=== PATIENT | female | born 1990 | race Caucasian/White ===

== ENCOUNTER 2024-01-04 06:26 | Inpatient (IN) | payer OTHER, SELFPAY ==
[2024-01-04] VITALS (88 sets, daily range): BP systolic 103–152; BP diastolic 64–96; PULSE 74–120; RESP 15–22; TEMP 36.4–37.1; O2SAT 96–100; BMI 29.2
[2024-01-04 07:12] LABS: Basophils Absolute Auto 0.1 K/mm3 (0.0-0.1); Basophils Percent Auto 0.7 % (0.2-1.2); Eosinophils Absolute Auto 0.1 K/mm3 (0-0.3); Eosinophils Percent Auto 1.2 % (0-4.4); Hematocrit 36.5 % (37.0-47.0); Hemoglobin 11.8 g/dL (12.0-15.0); Immature Granulocyte Absolute 0.07 K/mm3 (0.00-0.031); Immature Granulocyte Percent A 0.8 % (0-0.5); Lymphocytes Absolute Auto 2.38 K/mm3 (0.9-3.2); Lymphocytes Percent Auto 26.7 % (18.3-44.2); Mean Corpuscular HGB Conc 32.3 g/dl (32-36); Mean Corpuscular Volume 86.5 fl (80-100); Mean Platelet Volume 11.2 fl (7.4-10.4); Monocytes Absolute Auto 0.9 K/mm3 (0.1-0.6); Monocytes Percent Auto 9.9 % (2.6-8.5); Neutrophils Absolute Auto 5.4 K/mm3 (1.3-6.7); Neutrophils Percent Auto 60.7 % (45.5-73.1); Platelet Count Result 249 k/mm3 (150-375); Red Blood Count 4.22 M/mm3 (4.2-5.4); Red Cell Distribution Width 13.5 % (11.5-14.5); White Blood Count 8.9 K/mm3 (4.5-10.0)
[2024-01-04] MEDS: LACTATED RINGERS 1,000 ML 125 ML IV CONT ×2 (07:22→13:10)
[2024-01-04] MEDS: AMPICILLIN 2 GM/NS 100 ML 2 GM/100 ML BAG IVPB (07:22)
[2024-01-04] MEDS: OXYTOCIN 30 UNITS/NS 500 ML 30 UNITS/500 ML BAG IV CONT (07:25)
[2024-01-04 08:04] LABS: HIV 1/2 Ab P24 Ag Result Negative (Negative)
[2024-01-04 08:20] LABS: Rapid Plasma Reagin Non-Reactive (NonReactive)
[2024-01-04] MEDS: AMPICILLIN 1 GM/NS 50 ML 1 GM/50 ML BAG IVPB ×2 (11:03→14:52)
--- NOTE | 2024-01-04 11:22 | WPDANESEPP ---
Anes - Eval Pre Procedure Procedure: Labor epidural Date/Time: 01/04/24 11:22 Preop Diagnosis: pain during labor Pre Op Diagnosis: IOL Patient Data Age: 33 Gender: F Height: 1.63 m Weight: 77.2 kg Last Vital Signs Temp 37.1 C 01/04/24 11:00 Pulse 92 01/04/24 11:15 BP 127/80 01/04/24 11:15 O2 Del Method Room Air 01/04/24 06:50 Allergies Allergy/AdvReac Type Severity Reaction Status Date / Time No Known Allergies Allergy Verified 12/30/23 14:20 Home Medications Medication Instructions Recorded Confirmed Type vits no.126-ferrous fum 1 tablet PO DAILY 12/30/23 History 28 mg iron-folic acid 800 mcg tablet (Classic ) sertraline 100 mg tablet 100 mg PO DAILY 12/30/23 History Laboratory Tests 01/04/24 06:40 WBC 8.9 K/mm3 (4.5-10.0) RBC 4.22 M/mm3 (4.2-5.4) Hgb 11.8 L g/dL (12.0-15.0) Hct 36.5 L % (37.0-47.0) MCV 86.5 fl (80-100) MCH 28.0 pg (26-34) MCHC 32.3 g/dl (32-36) RDW 13.5 % (11.5-14.5) Plt Count 249 k/mm3 (150-375) MPV 11.2 H fl (7.4-10.4) Immature Gran % (Auto) 0.8 H % (0-0.5) Neut % (Auto) 60.7 % (45.5-73.1) Lymph % (Auto) 26.7 % (18.3-44.2) [place] % (Auto) 9.9 H % (2.6-8.5) Eos % (Auto) 1.2 % (0-4.4) Baso % (Auto) 0.7 % (0.2-1.2) Lymph # (Auto) 2.38 K/mm3 (0.9-3.2) [place] # (Auto) 0.9 H K/mm3 (0.1-0.6) Eos # (Auto) 0.1 K/mm3 (0-0.3) Baso # (Auto) 0.1 K/mm3 (0.0-0.1) Abs Immat Gran (auto) 0.07 H K/mm3 (0.00-0.031) Absolute Neuts (auto) 5.4 K/mm3 (1.3-6.7) Absolute Nucleated RBC 0.000 K/mm3 (0.0-0.012) Nucleated RBC % 0.0 % (0.0-0.2) RPR Non-reactive (NonReactive) HIV 1&2 Ab/P24 Ag 4thGn Negative (Negative) Blood Type B Positive Antibody Screen Negative Patient hx anesthesia problems: none Family hx anesthesia problems: none Results Review: All pre-operative results and documents have been reviewed as part of the pre-operative evaluation. FORMERLY [facility], [facility] Past Medical History Medical History (Updated 01/04/24 @ 11:23 by Lo Mark CRNA) IUP (intrauterine ), incidental Family History Family History (Updated 12/30/23 @ 14:26 by Marimar Gillette RN) Mother Cerebrovascular accident Social History Social History Substance use: never Do You Feel Safe in your Home?: Yes Lack of Transportation: YES Lack of Food: Never True Current Housing: I Have Housing Concerned About Future Housing: No Difficulty Paying Gas/Electric Bills: No Difficulty Paying for Meds: No Currently Unemployed: No Education: High School Diploma/GED Difficulty w/ Childcare or Family Care: No Spiritual care concerns: No Exam Day of Procedure 01/04/24 11:22
--- NOTE | 2024-01-04 13:05 | WPDHPUPDATE1 ---
History and Physical Update Update Date/Time: 01/04/24 13:05 33-year-old multiparous female with twin gestation at 38 weeks gestation. Induction of labor at 38 weeks. Good movement, artificial rupture of membranes was performed -clear fluid with some blood/ 6/ -1. Reassuring heart tones x2 , expectant management. History and Physical has been reviewed, including an updated exam of the patient. There are NO changes in the patient's condition. Risks, benefits, and alternatives have been discussed and questions answered. Patient agrees to proceed with procedure.
[2024-01-04] MEDS: ONDANSETRON INJ 4 MG/2 ML VIAL IV PUSH (15:26)
[2024-01-04] MEDS: ceFAZolin 1 GM/NS 50 ML 1 GM/50 ML BAG IVPB (16:00)
--- NOTE | 2024-01-04 16:41 | P.PNAN_ITS ---
Anes - Eval Final PreProcedure Day of Procedure 01/04/24 16:41 Patient weight: overweight Heart: tachycardia Lungs: clear to auscultation Neurological: alert and oriented ASA classification: II Emergent: no Anesthetic plan: proceed Anesthesia type and monitoring: regional epidural and standard monitoring Other findings: use existing epid for c/s twin b Results Review: All pre-operative results and documents have been reviewed as part of the pre- operative evaluation. Informed Consent: The patient's anesthetic plan and its attendant risks and benefits were discussed with the patient/family/POA. Questions were solicited and answers provided to the satisfaction of the patient/family/POA.
--- NOTE | 2024-01-04 16:53 | W.PM.OBCSD ---
OB - Delivery Note Procedure Delivery date: 01/04/24 Pre-op diagnosis: Other (Twin gestation, malposition of the 2nd twin -transverse) Post-op Diagnosis: Same Induction method: AROM and Per Pitocin Protocol Delivery monitor: External FHT and External Uterine Procedure Performed: Primary and Other ( normal spontaneous vaginal delivery) Surgeon: Charlie Garcia MD Anesthesia type: Epidural Description of Procedure/Findings: Twin A was delivered vaginally after induction of labor with Pitocin and artificial rupture of membranes. There was a second-degree laceration that was pared with 2-0 Vicryl. Twin gestation, both babies were vertex initially. she rapidly progressed through active labor and delivered with just a couple of pushes. Epidural anesthesia. Twin B was delivered by for transverse lie. She was prepped and draped in dorsal supine position with a leftward tilt.? This was done after spinal anesthetic was applied.? A low-transverse skin incision was made and carried down till of the fascia with the knife.? The fascial incision was made with the knife.? The fascial incision was extended laterally with Cormier scissors.? The fascia was tented upward superiorly and inferiorly the rectus muscles were dissected off bluntly.? The rectus muscles were the midline.? The preperitoneal fat and peritoneum were dissected open bluntly at the superior aspect of the rectus muscles.? The peritoneal incision was extended superior and inferior with good position of bladder.? The uterine incision was made with a scalpel down to the level of the amniotic cavity.? The amniotic cavity was entered bluntly.? The infant was delivered.? The cord was clamped and cut and the was handed off to waiting pediatric staff.? Cord bloods were obtained.? The placenta was removed manually.? The uterus was exteriorized.? The uterus was cleared of all clots, debris and membranes.? The uterus was closed in 0 Vicryl running lock fashion.? An imbricating over a was placed along the incision line as well.? The uterus was returned to the abdomen.? The gutters were cleared of all clots and debris.? The fascia was closed with 0 Vicryl running fashion.? The subcutaneous tissue was irrigated pinpoint bleeders were cauterized.? The skin was closed with subcuticular absorbable bib.? The skin incision line was covered with glue.? The patient tolerated the procedure well.? She has taken recovery room in stable condition.? Sponge lap and needle counts were correct x2.? Specimen: Yes Complications: No immediate complications Condition: Stable Disposition: Floor [place] Baby Date of : 01/04/24 Gestational Age by Date: 38 Twins 2: Date of : 01/04/24 Weeks of gestation at delivery: 38
[2024-01-04] MEDS: ACETAMINOPHEN 500 MG TABLET 1000 MG PO (17:57)
[2024-01-04] MEDS: OXYTOCIN 30 UNITS/NS 500 ML 30 UNITS/500 ML BAG 125 UNITS IV CONT (17:58)
[2024-01-04] MEDS: FAMOTIDINE 20 MG/2 ML VIAL IV PUSH (17:58)
[2024-01-04] MEDS: KETOROLAC 15 MG/ML VIAL (*BKC) IV PUSH (20:07)
[2024-01-04] MEDS: KCL 20 MEQ/D5/0.45% SOD CHL 1,000 ML 125 ML IV CONT (21:05)
[2024-01-05 00:30] VITALS: BP 117/72; PULSE 87; RESP 16; TEMP 36.9
[2024-01-05] MEDS: ACETAMINOPHEN 325 MG TABLET 650 MG PO ×4 (02:18→21:14)
[2024-01-05] MEDS: KETOROLAC 15 MG/ML VIAL (*BKC) IV PUSH ×3 (02:19→15:08)
[2024-01-05 04:30] VITALS: BP 121/74; PULSE 86; RESP 16; TEMP 36.8; O2SAT 99
--- NOTE | 2024-01-05 05:15 | PC.NURSE ---
193 Pt arrived on unit via stretcher to room 277 pt oriented to floor policies. Pt stable at this time, chux changed when transferring to bed. bleeding moderate, fundus firm at umbilicus.
--- NOTE | 2024-01-05 05:17 | PC.NURSE ---
0500- FC discontinued, CBC drawn and sent to lab. Pt up at side of bed then taking small steps in room without difficulty. Underpads changed, underwear placed on pt. Pt back in bed with standby assist of this nurse. Pt knows to call for assistance to restroom.
[2024-01-05 05:19] LABS: Basophils Percent Auto 0.2 % (0.2-1.2); Eosinophils Percent Auto 0.1 % (0-4.4); Hematocrit 27.9 % (37.0-47.0); Hemoglobin 9.2 g/dL (12.0-15.0); Immature Granulocyte Absolute 0.09 K/mm3 (0.00-0.031); Immature Granulocyte Percent A 0.6 % (0-0.5); Lymphocytes Absolute Auto 1.83 K/mm3 (0.9-3.2); Lymphocytes Percent Auto 12.3 % (18.3-44.2); Mean Platelet Volume 11.4 fl (7.4-10.4); Monocytes Absolute Auto 1.3 K/mm3 (0.1-0.6); Monocytes Percent Auto 8.5 % (2.6-8.5); Neutrophils Absolute Auto 11.7 K/mm3 (1.3-6.7); Neutrophils Percent Auto 78.3 % (45.5-73.1); Platelet Count Result 189 k/mm3 (150-375); Red Blood Count 3.17 M/mm3 (4.2-5.4); Red Cell Distribution Width 13.6 % (11.5-14.5); White Blood Count 14.9 K/mm3 (4.5-10.0)
--- NOTE | 2024-01-05 07:45 | P.PNOB_ITS ---
OB - PN: Subj Subjective Date/time seen: 01/05/24 07:45 Interval history: post op day 1 vaginal delivery twin A/ twin B doing well pain managed OB - PN: Obj Data Labs 01/05/24 04:43 Labs: Laboratory Results - last 24 hr 01/04/24 01/05/24 06:40 04:43 WBC 14.9 H RBC 3.17 L Hgb 9.2 L Hct 27.9 L MCV 88.0 MCH 29.0 MCHC 33.0 RDW 13.6 Plt Count 189 MPV 11.4 H Immature Gran % (Auto) 0.6 H Neut % (Auto) 78.3 H Lymph % (Auto) 12.3 L [place] % (Auto) 8.5 Eos % (Auto) 0.1 Baso % (Auto) 0.2 Lymph # (Auto) 1.83 [place] # (Auto) 1.3 H Eos # (Auto) 0.0 Baso # (Auto) 0.0 Abs Immat Gran (auto) 0.09 H Absolute Neuts (auto) 11.7 H Absolute Nucleated RBC 0.000 Nucleated RBC % 0.0 RPR Non-reactive HIV 1&2 Ab/P24 Ag 4thGn Negative Blood Type B Positive Antibody Screen Negative OB - PN A/P Plan day: 1 Time Spent With Patient Time: Total time spent is greater than 50% in coordination of care (as documented) at patient's floor/unit and/or counseling patient: Review of Systems Review of Systems: All systems reviewed & are unremarkable except as noted in HPI and below Exam Const: General: cooperative and healthy appearing Chest: Chest palpation & inspection: normal inspection of the chest Resp: Effort & Inspection: normal respiratory effort Cardio: Rate: regular rate GI: Other: incision CDI Skin: General skin exam: normal color Neuro: General: patient oriented x3
[2024-01-05 08:20] VITALS: BP 113/71; PULSE 86; RESP 18; TEMP 36.8; O2SAT 98
[2024-01-05] MEDS: SIMETHICONE 80 MG TAB.CHEW PO ×3 (09:05→17:54)
[2024-01-05] MEDS: POLYSACCHARIDE IRON COMPLEX 150 MG CAPSULE PO ×2 (09:06→17:54)
[2024-01-05] MEDS: DOCUSATE SODIUM 100 MG CAPSULE PO ×2 (09:06→17:54)
[2024-01-05] MEDS: MULTIVIT/MIN/PREN/FOL AC/IRON TABLET 1 TAB PO (09:06)
--- NOTE | 2024-01-05 09:37 | WPDANLDPN2 ---
Anes-Prog Note L&D Date/Time: 01/05/24 09:37 Comfortable throughout: labor, delivery (baby A) and section (baby B) Neuraxial method: epidural Epidural/Spinal procedure site: clean & non-tender Neuro status: Neuro function grossly intact. Cardiovascular status: normal Respiratory status: normal Airway patency: baseline Mental status: baseline Post-Op hydration status: normal Vital Signs: Last Vital Signs Temp 98.2 F 01/05/24 08:20 Pulse 86 01/05/24 08:20 Resp 18 01/05/24 08:20 BP 113/71 01/05/24 08:20 Pulse Ox 98 01/05/24 08:20 O2 Del Method Room Air 01/04/24 18:50 Pain score (VAS): 3 I/O: Intake & Output 01/04/24 01/05/24 01/05/24 23:59 07:59 15:59 Intake Total 250 1250 Output Total 1140 1800 Balance -890 -550 Post-procedural complaints: pruritis mild, no treatment Patient feedback: Patient satisfied with anesthetic care.
--- NOTE | 2024-01-05 09:39 | WPDANLDNPN2 ---
Anes-Prog Note L&D-Neuraxial Date/Time: 01/05/24 09:39 Neuraxial medications: epidural PF morphine Opiod-related complaints: pruritis mild, no treatment Patient feedback: Patient satisfied with post-operative pain management.
--- NOTE | 2024-01-05 11:05 | PC.NURSE ---
[id number]. Met with patient to assess and discuss needs related to feeding. Mother states it is her intention to [exclusively breastfeed]. She states she BF her 7 year old son for a year. Encouraged mother to breastfeed infant every 2-3 hours, watching for early feeding cues. If infant is sleepy, unwrap and place baby skin to skin. Discussed signs that is effectively , i.e. sufficient voids and stools, jaundice within normal limits, <10% weight loss from . Mother educated on milk production, supply and demand, and expectations for in the immediate period. Baby girl was able to latch optimally to the right and left breast, with swallows heard and visualized. Baby boy was unable to latch due to being sleepy. Mother encouraged to do skin to skin with baby boy and hand express some colostrum to offer to baby boy, and to watch for feeding cues in baby boy. Encouraged feeding on demand and feeding durations of 15 minutes or greater. Discussed breast/nipple care with good hand hygiene, signs of a correct latch, listening for swallows and documenting feedings on the feeding sheet. Mother also reports she has a pump provided thru insurance and plans to pump when she goes back to work at 12 weeks. She has measured both nipples for the appropriate size flange and feels confident she has the appropriate size. Mother instructed to call for assistance if infant will not feed every 3 hours, if there is discomfort with , or if mother has any other questions or concerns. resources provided including the Mom and Baby Guide. Mother verbalized understanding. Updated patient?s primary RN with education provided.
[2024-01-05 12:07] VITALS: BP 117/77; PULSE 110; RESP 16; TEMP 36.3; O2SAT 100
[2024-01-05] MEDS: WITCH HAZEL 40 PADS 1 PAD (12:59)
[2024-01-05] MEDS: BENZOCAINE 20% AER SPR (*SP) 56 GM CAN 1 SPRAY (12:59)
[2024-01-05 18:58] VITALS: BP 131/76; PULSE 90; RESP 12; TEMP 36.6; O2SAT 99
[2024-01-05] MEDS: IBUPROFEN 600 MG TABLET PO (21:14)
[2024-01-06] MEDS: IBUPROFEN 600 MG TABLET PO ×4 (05:19→23:13)
[2024-01-06] MEDS: ACETAMINOPHEN 325 MG TABLET 650 MG PO ×4 (05:19→23:13)
[2024-01-06] MEDS: LIDOCAINE 5% PATCH 1 PATCH TRANSDERM (05:20)
[2024-01-06 07:25] VITALS: BP 122/75; PULSE 103; RESP 16; TEMP 37.1; O2SAT 98
[2024-01-06] MEDS: POLYSACCHARIDE IRON COMPLEX 150 MG CAPSULE PO ×2 (07:47→17:27)
[2024-01-06] MEDS: MULTIVIT/MIN/PREN/FOL AC/IRON TABLET 1 TAB PO (07:47)
[2024-01-06] MEDS: DOCUSATE SODIUM 100 MG CAPSULE PO ×2 (07:47→17:27)
[2024-01-06] MEDS: SIMETHICONE 80 MG TAB.CHEW PO ×3 (07:47→17:27)
--- NOTE | 2024-01-06 08:00 | PC.NURSE ---
Consulted with patient to assess needs related to . Discussed with mother her successes, concerns and any questions she has. Reviewed positioning and alignment with twins, supporting breast. Handout given with different positions for feeding both infants simultaneously. A latched optimally to the right breast in cross cradle position. Mom was able to latch independently. The infant was able to maintain latch without discomfort to mother. Resources used to facilitate learning were used from a visual handout. Discussed doing [15-15-15] with mother for Baby A and Baby B. Weight loss is a concern with both Baby A and Baby B. Mother states that she is already supplementing Baby B with Gentlease formula. Educated mother that this is not a doctors order, just a recommendation due to increased weight loss. Discussed infant feeding for 15 minutes, formula feeding 15ml after each 15 minutes nursing session and pumping for 15 minutes. Mother states that she would like to begin doing this with next feeding. Breast Pump (Spectra) being brought from home today - patient will call RN for pump education once her pump arrives. Mother voiced understanding of the education shared, to call for assistance if the infant does not latch or if there is discomfort with . Reported to the Primary RN.
--- NOTE | 2024-01-06 08:41 | P.PNOB_ITS ---
OB - PN: Subj Subjective Date/time seen: 01/06/24 08:41 Interval history: post op day 1 vaginal delivery twin A/ twin B doing well pain managed Patient comments: no complaints, pain well controlled, incisional pain, t olerating diet and flatus present OB - PN: Obj Data Labs 01/05/24 04:43 OB - PN A/P Plan day: 2 Plan: routine care Comments: POD#2 LTCS - no problems, Time Spent With Patient Time: Total time spent is greater than 50% in coordination of care (as documented) at patient's floor/unit and/or counseling patient: Exam Const: General: comfortable, no acute distress and alert Resp: Effort & Inspection: normal respiratory effort Auscultation: no crackles, no rales and no rhonchi Cardio: Rate: regular rate Heart sounds: no click, no murmurs and no rubs GI: Inspection: non-distended Auscultation: normal bowel sounds Other: Incision - CDI Extrem: General: normal to inspection, no pedal edema and no calf tenderness
[2024-01-06 19:05] VITALS: BP 130/79; PULSE 97; RESP 14; TEMP 36.8; O2SAT 99
[2024-01-06] MEDS: BISACODYL 10 MG SUPPOSITORY RECTAL (19:16)
[2024-01-07] MEDS: IBUPROFEN 600 MG TABLET PO ×2 (05:09→11:04)
[2024-01-07] MEDS: ACETAMINOPHEN 325 MG TABLET 650 MG PO ×2 (05:09→11:04)
--- NOTE | 2024-01-07 08:35 | PM.OBPNVD ---
OB - PN: Subj Subjective Date/time seen: 01/07/24 08:35 Patient comments: no complaints, pain well controlled, incisional pain, tolerating diet and flatus present OB - PN: Obj Data Labs 01/05/24 04:43 OB - PN A/P Plan day: 3 Plan: routine care, discharge home and other Comments: Incision check in one week. Given precautions Time Spent With Patient Time: Total time spent is greater than 50% in coordination of care (as documented) at patient's floor/unit and/or counseling patient: Exam Const: General: comfortable, no acute distress and alert Resp: Effort & Inspection: normal respiratory effort Auscultation: no crackles, no rales and no rhonchi Cardio: Rate: regular rate Heart sounds: no click, no murmurs and no rubs GI: Inspection: non-distended GI Palp: No Tenderness to palpation present (GI) Auscultation: normal bowel sounds Other: Incision - CDI Extrem: General: normal to inspection, no pedal edema and no calf tenderness
--- NOTE | 2024-01-07 08:37 | PM.OBDSVD ---
DS: Admitting Diagnosis Discharge Date 01/07/24 Admitting Diagnosis term - twins DS: Discharge Diagnosis Discharge Diagnosis (1) delivery delivered: Code(s): O82 - Encounter for delivery without indication Status: Acute OB - DS: Summary OB Procedures : None OB Procedures Intrapartum: Spontaneous Vag Delivery and OB Procedures: : None Peripartum Data Procedures: Procedures Operation Date: 01/04/24 07:30 <No data on this case meets the specified criteria> Operation Date: 01/04/24 15:50 Actual Procedure Side Surgeon p Section Not Applicable Charlie Garcia MD Time Spent with Patient Time attestation: Total time spent providing and/or coordinating discharge services: DS: Data Data Completed and Pending Pending studies at discharge: Pending at discharge 01/04/24 17:33 Surgical [PTH] Routine Discharge Plan Discharge Discharging Clinician: Charlie Garcia Patient Disposition: Home, Self-Care Activity: pelvic rest Diet: regular Patient Instructions: Antibiotic Form Stand Alone Forms: General Discharge Information Follow-up/Referrals: Charlie Garcia MD [Physician] - Discharge Medications: New hydrocodone-acetaminophen 5-325 mg tablet 1 tablet PO Q4H PRN (Reason: pain) Qty: 25 0RF Continued sertraline 100 mg Tablet 100 mg PO DAILY Classic 28 mg iron- 800 mcg Tablet 1 tablet PO DAILY Date of admission: 01/04/24 06:26 Primary Care Provider: UNKNOWN,DOCTOR Admitting Provider: Charlie Garcia Attending physician on admission: Charlie Garcia Condition: Stable
[2024-01-07] MEDS: DOCUSATE SODIUM 100 MG CAPSULE PO (09:14)
[2024-01-07] MEDS: POLYSACCHARIDE IRON COMPLEX 150 MG CAPSULE PO (09:14)
[2024-01-07] MEDS: MULTIVIT/MIN/PREN/FOL AC/IRON TABLET 1 TAB PO (09:14)
[2024-01-07 09:15] VITALS: BP 121/82; PULSE 82; RESP 18; TEMP 36.8; O2SAT 100
[2024-01-07] MEDS: SIMETHICONE 80 MG TAB.CHEW PO ×2 (09:15→11:04)
--- NOTE | 2024-01-07 11:45 | PC.NURSE ---
Consulted with mother concerning needs and she shared her ability to independently latch infants optimally without pain. She is tandem feeding, pumping and supplementing at each feeding. She is comfortable going home with this plan. Mother is feeding appropriately for growth of and understands stimulating to eat if needed. Infants has had appropriate feedings in the last 24 hours meets the outcomes for weight, output, blood sugar and jaundice at this time. Reinforced understanding of milk production, transition of milk, signs of adequate intake, transition of stool, prevention/relief of engorgement, community resources, and when to call a provider using the resource of the feeding sheet along with the mom and baby guide. Mother voiced understanding of the information shared, is confident to continue effectively her infant at home, when to call for assistance, denies any additional assistance or education at this time. Reported to the Primary RN.
[2024-01-09 09:59] VITALS: BP 124/77; PULSE 95; RESP 18; TEMP 36.8; O2SAT 99
== END 2024-01-07 14:10 | disposition home or self-care (01) | DRG 787 ==
LOC: ANHLDR 06:36 → ANHOB2 19:33
PROVIDERS: Admitting Provider Obstetrics & Gynecology; Visit Provider Obstetrics & Gynecology
PROC: 10D00Z1 Extraction of Products of Conception, Low, Open Approach (ICD-10-PCS; CPT 59514; principal; 2024-01-04 15:50)
DX: O30.043 Twin pregnancy, dichorionic/diamniotic, third trimester (principal); O98.32 Other infections with a predominantly sexual mode of transmission complicating childbirth; Z37.2 Twins, both liveborn; Z3A.38 38 weeks gestation of pregnancy; A60.09 Herpesviral infection of other urogenital tract; O99.824 Streptococcus B carrier state complicating childbirth; O70.1 Second degree perineal laceration during delivery; O32.2XX2 Maternal care for transverse and oblique lie, fetus 2
CPT/HCPCS: 36415; 85025; 86592; 86703; 86850; 86900; 86901; 88307; A9270; G0432; J0290; J0690; J1100; J1885; J2210; J2274; J2405; J2590; J2795; J3480; J7120